=== PATIENT | female | born 1965 | race African-American/Black ===

== ENCOUNTER 2020-06-28 19:19 | Emergency (ER) | payer MEDICAID ==
[~2020-06-28] VITALS: Ht 167.6 cm; Wt 62.0 kg
[2020-06-28] MEDS ORDERED: KETOROLAC 30MG/ML VIAL IM ONE (21:00)
[2020-06-28] MEDS ORDERED: BACITRACIN ZINC OINT UDPKT TOP ONE (21:00)
[2020-06-28] MEDS ORDERED: TETANUS, DIPHTHERIA, PERTUSSIS VAC/PF 0.5ML (>7YR OLD) IM ONE (21:00)
[2020-06-28] MEDS ORDERED: LIDOCAINE 1%/EPI 1:100,000 10 ML VIAL IJ ONE (21:00)
[2020-06-28 21:35] VITALS: BP 137/78
[2020-06-28] MEDS ORDERED: LIDOCAINE HCL/PF 1% 10 MG/ML 5ML VIAL IJ ONE (22:30)
[2020-06-28] MEDS ORDERED: LIDOCAINE HCL/PF 1% 10 MG/ML 5ML VIAL ONE (22:34)
== END 2020-06-29 00:18 | disposition home or self-care (01) ==
LOC: ER 19:19 → CANBEDREQ 23:55 → ER 06-29 00:18
DX: S71.111A Laceration without foreign body, right thigh, initial encounter (principal); W45.8XXA Other foreign body or object entering through skin, initial encounter; W22.8XXA Striking against or struck by other objects, initial encounter; Y93.89 Activity, other specified; Y92.89 Other specified places as the place of occurrence of the external cause
CPT/HCPCS: 12002; 90471; 90715; 96372; 99284; J1885; J3490

== ENCOUNTER 2020-07-01 11:18 | Emergency (ER) | payer MEDICAID ==
[~2020-07-01] VITALS: Ht 167.6 cm; Wt 68.0 kg
[2020-07-01 11:21] VITALS: BP 143/78
== END 2020-07-01 12:37 | disposition home or self-care (01) ==
LOC: ER 11:18
DX: Z48.00 Encounter for change or removal of nonsurgical wound dressing (principal)
CPT/HCPCS: 99281

== ENCOUNTER 2020-11-18 16:07 | Emergency (ER) | payer MEDICAID ==
[~2020-11-18] VITALS: Ht 175.3 cm; Wt 80.0 kg
[2020-11-18] MEDS ORDERED: TRAMADOL 50MG TABLET PO ONE (16:45)
[2020-11-18] MEDS ORDERED: KETOROLAC 60MG/2ML VIAL IM ONE (16:45)
[2020-11-18 17:47] VITALS: BP 120/78
== END 2020-11-18 17:47 | disposition home or self-care (01) ==
LOC: ER 16:18
DX: S50.02XA Contusion of left elbow, initial encounter (principal); F20.9 Schizophrenia, unspecified; F31.9 Bipolar disorder, unspecified; Y04.0XXA Assault by unarmed brawl or fight, initial encounter; Y93.89 Activity, other specified; Y92.89 Other specified places as the place of occurrence of the external cause
CPT/HCPCS: 73080; 96372; 99283; J1885